=== PATIENT | female | born 1985 | race Caucasian/White ===

== ENCOUNTER 2021-07-20 05:34 | Day surgery (SDC) | payer OTHER ==
[~2021-07-20] VITALS: Ht 165.1 cm; Wt 88.2 kg
[2021-07-20 06:16] VITALS: BP 119/78
[2021-07-20] MEDS ORDERED: L.AC1CAP6 PO (06:32)
[2021-07-20] MEDS ORDERED: PREN1TAB60 PO (06:32)
== END 2021-07-20 08:05 | disposition home or self-care (01) ==
LOC: OUT 05:34
PROVIDERS: ATTEND Internal Medicine Gastroenterology
DX: O26.892 Other specified pregnancy related conditions, second trimester (principal); K51.90 Ulcerative colitis, unspecified, without complications; Z3A.17 17 weeks gestation of pregnancy; Z20.822 Contact with and (suspected) exposure to COVID-19; Z79.899 Other long term (current) drug therapy; Z91.048 Other nonmedicinal substance allergy status
CPT/HCPCS: 87635; 88305